=== PATIENT | male | born 1995 | race Caucasian/White ===

== ENCOUNTER 2023-06-01 17:29 | Emergency (ER) | payer OTHER ==
[2023-06-01 17:53] VITALS: BP 122/74; PULSE 61; RESP 18; TEMP 97; BMI 32.1
== END 2023-06-01 18:58 | disposition home or self-care (01) ==
LOC: FER 17:29
DX: S93.402A Sprain of unspecified ligament of left ankle, initial encounter (principal); M25.572 Pain in left ankle and joints of left foot; W10.9XXA Fall (on) (from) unspecified stairs and steps, initial encounter; X50.0XXA Overexertion from strenuous movement or load, initial encounter; Y93.01 Activity, walking, marching and hiking
CPT/HCPCS: 73610-TC-LT-FY; 73630-TC-LT; 99283-25